=== PATIENT | male | born 1930 | race African-American/Black ===

== ENCOUNTER 2017-11-15 15:10 | Observation (INO) | payer MEDICARE, BC ==
[2017-11-15 15:58] LABS: #Lymphocytes 0.9 thou/uL (1.20-3.40); #Monocytes 0.4 thou/uL (0.11-0.59); #Neutrophils 5.1 thou/uL (1.40-6.50); %Basophils 0.3 % (0.0-1.0); %Eosinophils 0.3 % (0.0-10.0); %Lymphocytes 13.3 % (21.0-51.0); %Monocytes 6.6 % (0.0-10.0); %Neutrophils 79.4 % (42.0-75.0); Mean Corpuscular HGB CONC 33.2 g/dL (32.0-36.0); Mean Corpuscular Hemoglobin 33.4 pg (27.0-31.0); Mean Platelet Volume 8.8 fL (7.4-10.4); Platelet Count 181 thou/uL (130-400); RBC Distribution Width 16.6 % (11.5-14.5); White Blood Cell (WBC) Count 6.4 thou/uL (4.8-10.8)
[2017-11-15 16:11] LABS: ALT (SGPT) 15 U/L (8-55); AST (SGOT) 14 U/L (5-34); Albumin 3.9 g/dL (3.4-4.8); Alkaline Phosphatase 67 U/L (40-150); Anion Gap 11 mmol/L (10-20); BUN (Urea Nitrogen) 16 mg/dL (8.4-25.7); Bilirubin, Total 0.6 mg/dL (0.2-1.2); Calc. Creatinine Clearance 0 mL/min (70-130); Calcium 9.5 mg/dL (7.8-10.44); Carbon Dioxide 28 mmol/L (23-31); Chloride 107 mmol/L (98-107); Estimated GFR-MDRD 85; Glucose 97 mg/dL (83-110); Protein, Total 6.9 g/dL (5.8-8.1); Sodium 142 mmol/L (136-145)
[2017-11-15 16:13] LABS: CKMB 2.6 ng/mL (0-6.6)
--- NOTE | 2017-11-15 17:15 | CT ---
CT OF THE BRAIN WITHOUT CONTRAST 11/15/17 INDICATION: History of fall with abrasions on the face. COMPARISON: Prior exam dated 07/14/16. IMPRESSION: 1. There is layered hemorrhage within the posterior horns of the lateral ventricles without evid ence of hydrocephalus or midline shift. No intraparenchymal contusion is noted. No additional focus o f subarachnoid hemorrhage is noted. 2. Moderate chronic small vessel white matter ischemic change is stable. 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 3. Skull and extracranial soft tissues appear within normal limits. 4. Findings called to Charlene at 5:05 p.m. on 11/15/17. Code CR COMMENTS: The paranasal sinuses are clear. Mastoid air cells are clear. The visualized skull is intact. POS: MIKE
--- NOTE | 2017-11-15 17:18 | CT ---
CT OF THE FACE WITHOUT CONTRAST: 11/15/17 INDICATION: History of fall with abrasions on the face. COMPARISON: None. FINDINGS: No displaced facial fracture is evident. There is left periorbital soft tissue swelling. The [place] l enses have been replaced. No air fluid level seen within the paranasal sinuses. Mastoid air cells are clear. There is prominent periapical lucency involving the remaining teeth of the anterior mandible. Prominent vascular calcifications involving the neck vasculature. The visualized intracranial conten ts demonstrate small amount of layered hemorrhage within the posterior horns of the lateral ventricle s. This is better detailed on a separately performed, separately dictated CT of the brain. IMPRESSION: 1. No displaced facial fracture demonstrated. 2. 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 3. Left periorbital soft tissue swelling and contusion. POS: MIKE
[2017-11-15 17:41] LABS: Bilirubin Negative (Negative); Blood, Urine Small (Negative); Clarity CLEAR (Clear); Glucose, Urine (Dipstick) Negative (Negative); Leukocyte Negative (Negative); Nitrite Negative (Negative); Protein, Urine (Dipstick) Negative (Neg-Trace); Specific Gravity, Urine 1.011 (1.002-1.036); Urobilinogen 0.2 mg/dL (0.2-1.0); pH, Urine 6.5 (5.0-9.0)
[2017-11-15 17:42] LABS: Bacteria/HPF None Seen HPF (None Seen); Hyaline Casts/LPF 0-3 HYALINE CAST LPF (0-3 Hyaline); Squamous Epithelial None Seen HPF (0-3); WBC/HPF None Seen HPF (0-3)
[2017-11-15 19:21] LABS: PTT 29.6 SEC (22.9-36.1)
[2017-11-15] MEDS ORDERED: Dextrose 5% in Water 1,000 ML IV PRN (19:23)
[2017-11-15] MEDS ORDERED: hydrALAZINE 20 MG/ML VIAL SLOW IVP PRN (19:23)
[2017-11-15] MEDS ORDERED: Dextrose 50% Abboject 50 ML SYRINGE SLOW IVP PRN (19:23)
[2017-11-15 19:36] VITALS: BMI 17.9
[2017-11-15] MEDS: Famotidine 20 MG TAB PO SCH (21:37)
--- NOTE | 2017-11-15 23:20 | HP ---
DATE OF ADMISSION: 11/15/2017 ADMITTING PHYSICIAN: Dr. Pretty CONSULTING PHYSICIAN: Dr. Byrne, Neurosurgery. REASON FOR HOSPITALIZATION: Ground level fall with head injury. HISTORY OF PRESENT ILLNESS: Mr. Orta is an 86-year-old male who lives alone in his home. He has home health care nurse who comes to his house 2-3 times weekly. He was seen by home health care nurs e this a.m. He was noted to have a contusion across his left cheek and forehead. She was concerned that he had a fall and someone in the EMS transported to [facility]. He denies any knowledge of a fall. He is awake, alert, and oriented x3; however, unable to remember any detail s of fall or injury. His neighbor said she last saw him normal on Sunday. His sister reports that she talked to him on the phone yesterday evening and he sounded normal. Details surrounding any inju ry are unclear at this point. He has past medical history of hyperlipidemia and hypertension. He ty pically walks using a cane, but he is able to ambulate without assistance of another person. When [facility] got to his house today, he was able to get up and open the door himself. Workup in e ER identified intraventricular hemorrhage. Neurosurgery was contacted by ER physician. Neurosurge ry recommends observation on the stroke unit with close neurologic monitoring. Trauma Services was c onsulted for admission and management. PAST MEDICAL HISTORY: It should be noted that the patient is a poor historian, however past medical history is taken from hospital admission one year ago and information gathered from patient and famil y. 1. Hypertension. 2. Hyperlipidemia. 3. Benign prostate hypertrophy. 4. History of orthostatic hypotension. PAST SURGICAL HISTORY: Status post colon surgery. SOCIAL HISTORY: The patient lives alone in his own home. He has assistance of home health care and a neighbor payroll bookkeeper. TOBACCO: None. ALCOHOL: None. DRUGS: None. CURRENT MEDICATIONS: The patient is unsure of his current medications. At this time, his sister will try to obtain his nh dications. The patient does report that he takes a total of 5 medications daily. According to the [facility] discharge summary, he was discharged on: 1. Hydrochlorothiazide 25 mg daily. 2. Finasteride 5 mg daily. 3. Tylenol p.r.n. 4. Remeron 50 mg daily. 5. Amlodipine with atorvastatin 10/20 daily. 6. Aspirin 325 mg daily. It should be noted that the patient reports that he is no longer taking aspirin; however, this cannot be confirmed. LABORATORY DATA: CBC: WBC 6.4, RBC 4.20, hemoglobin 14.0, hematocrit 42.2, platelets 181. Chemistr y: Sodium 142, potassium 4.0, chloride 107, carbon dioxide 28, BUN 16, creatinine 1.01, glucose 97, calcium 9.5, total bilirubin 0.6, AST 14, ALT 15, alkaline phosphatase 67, CK-MB 2.6, troponin 0.10. EKG 74 beats per minute with right bundle branch block. REVIEW OF SYSTEMS: Constitutional: The patient denies chills, fever, recent weight loss or generali zed malaise. HEENT: Denies otorrhea, rhinorrhea, sore throat, or neck pain. Cardiovascular: Denie s chest pain, palpitations or syncope. Respiratory/Chest: Denies chest pain, denies shortness of br eath. Denies wheezing. Gastrointestinal: Denies abdominal pain, nausea, vomiting, diarrhea or cons tipation. Musculoskeletal: Reports fall; however, is unsure of details. Neurologic: Denies headac he. Denies dizziness. Skin: Denies skin changes. Hemo/Lymphatics: Denies abnormal bleeding. PHYSICAL EXAMINATION: VITAL SIGNS: Blood pressure 172/84, pulse 59, respirations 18, O2 sat 96% on room air. GENERAL: Elderly male lying in bed in no acute distress, nontoxic appearing. HEENT: Abrasions to left cheek and left forehead. No active bleeding. No posterior neck tenderness . CARDIOVASCULAR: Regular rate and rhythm. Heart sounds normal. PULMONARY: Bilateral breath sounds clear. No respiratory distress. ABDOMEN: Soft, nontender, nondistended. Pelvis stable. Bowel sounds present. EXTREMITIES: Moves all extremities. Strength 5/5. NEUROLOGIC: GCS 15. No focal deficits. Pupils equal, round, reactive to light, 3 mm skin abrasion to left side face. BACK: Normal range of motion. No tenderness. ASSESSMENT AND PLAN: 1. Status post apparent fall, unclear details. 2. Interventricular hemorrhage. 3. History of hypertension. 4. History of hyperlipidemia. PLAN: 1. Admit to stroke unit for close neurologic monitoring and serial neurologic exams. 2. Consult to Dr. Byrne. Discussed with JORGE Funes. 3. Repeat CT scan in a.m. 4. Regular diet. 5. PT/OT consult. 6. Rehabilitation referral for discharge planning. 7. Case management consult for discharge planning. Anticipate the patient will need inpatient rehab or fpc facility. 8. Acetaminophen for pain control. 9. Nursing to verify home medications when sister is able to obtain list. 10. SCDs for DVT prophylaxis. No chemical DVT prophylaxis at this time. 11. Pepcid for gastritis prophylaxis. The patient was reviewed with Dr. Pretty at time of admission. Dr. Pretty agrees with plan.
[2017-11-15] MEDS: Acetaminophen 500 MG TAB PO SCH (23:35)
[2017-11-15] MEDS: hydrALAZINE 20 MG/ML VIAL SLOW IVP PRN (23:37)
[2017-11-16] MEDS ORDERED: Amlodipine 10 MG TAB PO SCH (04:15)
[2017-11-16] MEDS ORDERED: Atorvastatin Calcium 20 MG TAB PO SCH (04:15)
[2017-11-16 05:12] LABS: Anion Gap 9 mmol/L (10-20); BUN (Urea Nitrogen) 16 mg/dL (8.4-25.7); Calc. Creatinine Clearance 53 mL/min (70-130); Calcium 9.4 mg/dL (7.8-10.44); Carbon Dioxide 28 mmol/L (23-31); Chloride 106 mmol/L (98-107); Estimated GFR-MDRD Greater than 90; Glucose 91 mg/dL (83-110); Magnesium 1.9 mg/dL (1.6-2.6); Phosphorus 2.9 mg/dL (2.3-4.7); Potassium 3.6 mmol/L (3.5-5.1); Sodium 139 mmol/L (136-145)
[2017-11-16] MEDS: Acetaminophen 500 MG TAB PO SCH ×4 (05:23→23:27)
[2017-11-16 06:20] LABS: #Monocytes 0.5 thou/uL (0.11-0.59); #Neutrophils 4.9 thou/uL (1.40-6.50); %Basophils 0.1 % (0.0-1.0); %Eosinophils 0.3 % (0.0-10.0); %Lymphocytes 14.9 % (21.0-51.0); %Monocytes 8.5 % (0.0-10.0); %Neutrophils 76.1 % (42.0-75.0); Mean Corpuscular HGB CONC 33.1 g/dL (32.0-36.0); Mean Corpuscular Hemoglobin 33.2 pg (27.0-31.0); Mean Platelet Volume 9.4 fL (7.4-10.4); Platelet Count 138 thou/uL (130-400); RBC Distribution Width 16.6 % (11.5-14.5); Red Blood Cell (RBC) Count 4.22 mill/uL (4.70-6.10); White Blood Cell (WBC) Count 6.4 thou/uL (4.8-10.8)
[2017-11-16] MEDS: Famotidine 20 MG TAB PO SCH ×2 (08:11→21:02)
--- NOTE | 2017-11-16 09:28 | CON ---
DATE OF CONSULTATION: 11/16/2017 This is a 30 minute initial patient evaluation in which 30 minutes were spent with the exam, spent co unseling and coordinating patient's care. The remainder of the examination was spent reviewing the jimmy melendez's medical records and appropriate imaging studies. CHIEF COMPLAINT: Status post unwitnessed fall with small intraventricular hemorrhage. HISTORY OF PRESENT ILLNESS: Mr. Orta is a pleasant 86-year-old male who presented to [facility] for the above complaint. Apparently the patient lives at home alone and has home heal th checking on him roughly 2 days per week. The patient's home health nurse yesterday noticed that sheila almanza had some lacerations into the left eye and nose, with concern that he fell. There was also reports of confusion in the patient. Given these symptoms, today, the patient's sister and his neighbor bro ught the patient for evaluation to the emergency room. Head CT was obtained in the ER today that pro wed a small collection of blood into the bilateral posterior horns of the ventricle. Review of the jimmy melendez's face CT shows no acute fracture of the cervical spine. The patient does not have much in th e way of pain complaints. He denies headache, blurred vision, but does note some dizziness and he do es use a cane when at home to walk. Again, the events are unclear surrounding his fall, but again, t he patient does have some gait difficulties and some dizziness which may have contributed to his fall . PHYSICAL EXAMINATION: GENERAL: The patient is awake, alert and appropriate. GCS currently is 15. He follows commands equ ally in all 4 extremities. SPINE: He has no tenderness to palpation to the cervical spine. He has no pronator drift. HEENT: He does have some left facial bruising and superficial abrasions consistent with a fall, more than likely several hours to even days ago. NEURO: He does have a slight amount of aphasia with some words, which I believe may be related to th e head trauma versus his age, rather than the intraventricular hemorrhage. His pupils are equal, rou nd and reactive bilaterally. DIAGNOSES: Status post fall with a small bilateral intraventricular hemorrhage. PLAN: I have discussed the patient's CT imaging with Dr. Byrne. At this time we will ask that our Trauma colleagues admit the patient in the stroke unit for 2 hour neuro checks and close observation. Given the fact that this fall was likely several days ago or a few days ago we will plan for a repe at head CT in the morning. The patient can eat. I would like his systolic blood pressure to remain less than 150 and he may eat. It is highly unlikely that there needs to be any type of neurosurgical intervention, but of course, we will follow up on his head CT sooner should he have any changes in h is neurologic status. Please hold all blood thinners. Please elevate the patient's head of bed to 3 0 degrees at all times. Please call with any changes in the patient's neurologic status, otherwise w e will plan for repeat head CT in the morning.
--- NOTE | 2017-11-16 10:08 | CT ---
NONCONTRAST CT HEAD: Date: 11-16-17 History: Follow up intraventricular bleed after fall. Comparison: 11-15-17 FINDINGS: Small amount of increased density is again seen layering within the occipital horns of each lateral v entricle compatible with hemorrhage, which is stable from the prior exam. No additional intraparenchy mal or extraaxial hemorrhages appreciated. There is no mass effect or midline shift. There is extensive chronic small vessel ischemic changes again noted. Remote lacunar infarcts in the each basal ganglia are again seen. There is no acute cortical infarction present. Mild cerebral volum e loss is present. Prominent vascular calcifications seen in the carotid siphons. There is left periorbital subcutaneous soft tissue swelling as well as soft tissue swelling adjacent to the left zygomatic bone, incompletely imaged. IMPRESSION: 1. Stable small amount of hemorrhage layering within the dependent portions of the occipital horns of the bilateral ventricles. 2. Additional chronic changes as described above, also stable from prior exam. 3. Suggestion of mild subcutaneous soft tissue swelling adjacent to the lateral aspect of the left or bit and left zygomatic bone. POS: MIKE
[2017-11-16] MEDS: Amlodipine 10 MG TAB PO SCH (10:27)
[2017-11-16] MEDS: Hydrochlorothiazide 25 MG TAB PO SCH (10:28)
--- NOTE | 2017-11-16 11:38 | PRG ---
DATE OF SERVICE: 11/16/2017 SUBJECTIVE: Mr. Orta is an 86-year-old man who lives at home. The patient was brought to the [facility] department after an apparent fall, which was unwitnessed. The patient sustained acute traumat ic brain injury which was evaluated by the trauma team. His injury was a small intraventricular hemorrhage. The patient was seen by Neurosurgery, nonoperati ve management has been recommended. Repeat brain CT scan reveals stable intraventricular hemorrhage. This morning, the patient is awake and alert. Khadra coma scale is 15. He is hungry and wants something to eat. He moves all extremi ties and answers questions appropriately. OBJECTIVE: VITAL SIGNS: Includes blood pressure 164/77, pulse is 61, respiration rate is 18, temperature 97.5 d egrees Fahrenheit, oxygen saturation is 94% on room air. HEENT: Reveals pupils equal, round, and reactive to light and accommodation. HEART: Reveals regular rate and rhythm. No murmurs or gallops auscultated. CHEST: Lungs are clear to auscultation bilaterally. Breathing is regular and unlabored. ABDOMEN: Soft, nontender, nondistended. Bowel sounds in all four quadrants appear normoactive. EXTREMITIES: With 2+ radial and pedal pulses bilaterally. No ankle edema is present. NEUROLOGIC: Reveals no focal deficits present. LABORATORY FINDINGS: Today includes a CBC with 6400 white blood cells, hemoglobin and hematocrit sta ble at 14.0 and 42.4 respectively. Platelet count is 138,000. Metabolic profile: Sodium 139, potas sium 3.6, chloride is 106, bicarbonate is 28, BUN 16, creatinine 0.83, glucose is 91, magnesium 1.9, phosphorus 2.9. IMPRESSION: 1. Status post apparent ground level fall. 2. Acute intraventricular hemorrhage, which is stable. 3. Acute hypokalemia. 4. Acute hypomagnesemia. 5. Acute hypophosphatemia. PLAN: 1. Correct abnormal electrolytes. 2. Continue with physical and occupational therapy and increase activity as tolerated. 3. We will start diet as tolerated. 4. We will ask case packer and sealer to begin discharge planning for possible prolonged intermediate facili ty.
--- NOTE | 2017-11-16 12:33 | PRG ---
DATE OF SERVICE: 11/16/2017 This is a 30-minute initial visit note in which 30 minutes were spent in review of the imaging record , evaluation and examination of patient, and formulation of a plan. Greater than 50% of the time was spent in counseling on this patient. CHIEF COMPLAINT: Intraventricular hemorrhage status post fall. HISTORY OF PRESENT ILLNESS: I reviewed the notes of my colleague Lincoln Funes PA-C, and agree wit h its content. Mr. Orta is an 86-year-old man who lives at home alone. He fell at some point ove r the last few days. He is unsure when, his family is also unsure, presented with confusion. Head C T yesterday demonstrates age appropriate atrophy and also layered intraventricular hemorrhage. This is stable on repeat head CT. Facial CT demonstrated that there is no evidence of cervical spine frac ture either. When I am seeing him this morning he really has no complaints. On exam, he is alert. He is quite delayed in his responses. 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 Nevertheless, he has a nonfocal exam otherwise. IMPRESSION AND PLAN: I will sign off and arrange for followup head CT in my clinic in 1 month. He s hould remain off of antiplatelet and anticoagulant medications. We will repeat a head CT again in 1 month and arrange for that appointment. DIAGNOSIS: Fall with intracranial bleed.
[2017-11-16] MEDS: hydrALAZINE 20 MG/ML VIAL SLOW IVP PRN (16:27)
[2017-11-16] MEDS: Finasteride 5 MG TAB PO SCH (21:01)
[2017-11-17] MEDS: Acetaminophen 500 MG TAB PO SCH ×3 (05:14→18:32)
[2017-11-17] MEDS: Amlodipine 10 MG TAB PO SCH (09:36)
[2017-11-17] MEDS: Famotidine 20 MG TAB PO SCH ×2 (09:37→20:23)
[2017-11-17] MEDS: Hydrochlorothiazide 25 MG TAB PO SCH (09:37)
--- NOTE | 2017-11-17 16:27 | PRG ---
DATE OF SERVICE: 11/17/2017 SUBJECTIVE: The patient is status post a fall in which he sustained an intraventricular hemorrhage. He has been on the stroke unit since his admission. He is doing well. His repeat CT scans have bee n stable. The patient is currently awaiting placement. The family is desiring to take him back home versus finding a snf near them to place him and so they are working with our case managemen t team to facilitate this. Otherwise, the patient is doing well. He has had no issues overnight. OBJECTIVE: VITAL SIGNS: Temperature is 98.0, heart rate 85, blood pressure 134/67, respirations 16, oxygen satu ration is 96% on room air. GENERAL: This morning, when I went to the patient's room, he was asleep, but he was easily awaken wi th verbal stimuli. The patient appeared to be at his baseline and stated that he had no complaints. LUNGS: Clear to auscultation bilaterally with moderate inspiratory and expiratory effort. HEART: Regular rate and rhythm. ABDOMEN: Soft, flat, nontender with active bowel sounds. EXTREMITIES: Neurovascularly intact x4. ASSESSMENT AND PLAN: 1. Status post ground level fall. 2. Intraventricular hemorrhage, stable. PLAN: Will be to continue supportive care and await final placement decision. The evaluation and ex amination were done with Dr. Kc this morning during rounds.
[2017-11-17] MEDS: Finasteride 5 MG TAB PO SCH (20:23)
[2017-11-17 20:36] VITALS: BP 124/63; TEMP 98.3
== END 2017-11-17 20:45 ==
LOC: ERS 15:10 → 2SE 19:20 → SURG A 11-17 10:08
PROVIDERS: ADMIT Specialist; ATTEND Specialist
DX: S06.359A Traumatic hemorrhage of left cerebrum with loss of consciousness of unspecified duration, initial encounter (principal); S06.349A Traumatic hemorrhage of right cerebrum with loss of consciousness of unspecified duration, initial encounter; E87.6 Hypokalemia; E83.42 Hypomagnesemia; E83.39 Other disorders of phosphorus metabolism; I10 Essential (primary) hypertension; E78.5 Hyperlipidemia, unspecified; N40.0 Benign prostatic hyperplasia without lower urinary tract symptoms; Z79.82 Long term (current) use of aspirin; Z79.899 Other long term (current) drug therapy; W18.30XA Fall on same level, unspecified, initial encounter
CPT/HCPCS: 70450 ×2; 70486; 80048; 80053; 82553; 83735; 84100; 84484; 85025 ×2; 85610; 85730; 93005; 96374; 96376; 97110; 97116 ×2; 97139 ×2; 99285; G0378 ×3; G8978; G8979; G8987; G8988; 36415; 81003; 81015; A4216; J0360